=== PATIENT | female | born 1970 | race Caucasian/White ===

== ENCOUNTER 2017-08-09 13:42 | Outpatient (CLI) | payer BC ==
--- NOTE | 2017-08-12 15:33 | MMO ---
BILATERAL SCREENING MAMMOGRAM: COMPARISON: Reference is made to mammograms dating back to 02/16/14. Examination is interpreted with the assistance of CAD. FINDINGS: There is heterogeneously dense breast parenchyma bilaterally. There is postoperative scar of the lef t upper outer breast. There is no evidence of a new dominant mass, suspicious clustering of microcal cification, or architectural distortion. There is punctate stable benign-appearing calcification cody aterally. IMPRESSION: BI-RADS 2 - benign findings. Routine annual screening mammography is recommended. POS: ANDRÉS
== END 2017-08-09 13:43 | disposition home or self-care (01) ==
LOC: SCSMAMMO 13:42
PROVIDERS: ATTEND Obstetrics & Gynecology
DX: Z12.31 Encounter for screening mammogram for malignant neoplasm of breast (principal)
CPT/HCPCS: 77067

== ENCOUNTER 2018-10-03 08:48 | Outpatient (CLI) | payer BC ==
--- NOTE | 2018-10-03 13:43 | MMO ---
Bilateral MAMMO Bilat Screen [facility]. CLINICAL HISTORY: Patient is 48 years old and is seen for screening. The patient has the following family history of breast cancer: cousin female. The patient has no personal history of cancer. 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 VIEWS: The views performed were: bilateral craniocaudal and bilateral mediolateral oblique. FILMS COMPARED: The present examination has been compared to prior imaging studies performed at [facility] on 08/09/2017, and at [facility] on 03/10/2007, 12/30/2011, 02/16/2014, 08/02/2015 and 07/28/2016. This study has been interpreted with the assistance of computer-aided detection. MAMMOGRAM FINDINGS: The breasts are heterogeneously dense, which could obscure a lesion on mammography. Post op changes on left are stable. No suspicious calcifications or masses are seen. IMPRESSION: FINDING IN THE LEFT BREAST IS BENIGN. A ROUTINE FOLLOW-UP MAMMOGRAM IN 1 YEAR IS RECOMMENDED. ACR BI-RADS Category 2 - Benign finding MAMMOGRAPHY NOTE: 1. A negative mammogram report should not delay a biopsy if a dominant of clinically suspicious mass is present. 2. Approximately 10% to 15% of breast cancers are not detected by mammography. 3. Adenosis and dense breasts may obscure an underlying neoplasm.
== END 2018-10-03 08:49 | disposition home or self-care (01) ==
LOC: SCSMAMMO 08:48
PROVIDERS: ATTEND Obstetrics & Gynecology
DX: Z12.31 Encounter for screening mammogram for malignant neoplasm of breast (principal); Z80.3 Family history of malignant neoplasm of breast; Z98.890 Other specified postprocedural states
CPT/HCPCS: 77067